=== PATIENT | male | born 1955 | race Caucasian/White ===

== ENCOUNTER 2016-06-27 03:47 | Emergency (ER) | payer OTHER ==
[2016-06-27 03:56] VITALS: RESP 16; TEMP 97.9
[2016-06-27] MEDS ORDERED: HYDROmorphONE/DILAUDID 1 MG/ML SYR IVP ONE ×2 (04:15→04:50)
[2016-06-27 04:22] LABS: % IMMATURE GRANULYOCYTES 0.2 % (0.0-1.1); ABSOLUTE IMMATURE GRANULOCYTES 0.02 10^3/uL (0.00-0.10); ADD DIFF? NO; ADD MORPH? NO; ADD SCAN? NO; ATYPICAL LYMPHOCYTE FLAG 0 (0-99); FRAGMENT RBC FLAG 0 (0-99); HEMATOCRIT 46.2 % (40.0-51.0); HEMOGLOBIN 16.5 g/dL (13.7-17.5); LEFT SHIFT FLG 0 (0-99); LIPEMIA HEMOLYSIS FLAG 90 (0-99); MEAN CELL HEMOGLOBIN 34.2 pg (27.9-34.1); MEAN CELL HEMOGLOBIN CONCENTR. 35.7 g/dL (32.4-36.7); MEAN CELL VOLUME 95.9 fL (81.5-99.8); MEAN PLATELET VOLUME 9.3 fL (8.7-11.7); PLATELET CLUMPS FLAG 0 (0-99); PLATELET COUNT 171 10^3/uL (150-400); RED BLOOD CELL COUNT 4.82 10^6/uL (4.40-6.38); RED CELL DISTRIBUTION WIDTH 11.9 % (11.5-15.2)
--- NOTE | 2016-06-27 04:34 | EDPHY ---
H & P Stated Complaint: abd pain Time Seen by Provider: 06/27/16 04:08 HPI/ROS: HPI The patient presents with left-sided lateral abdominal pain which has been present since 8:00 p.m. tonight. It began while he was watching TV and the pain started slowly and has gotten progressively worse. It is an achy in severe pain, without radiation. He has no prior history of similar. He does have frequent diffuse abdominal pain which he refers to as gas pain. He is status post cholecystectomy. He has been evaluated with endoscopy within the last few years with normal results. He just saw his doctor at [facility] yesterday who recommended MiraLax for this gas pain. He has taken several doses and has had 2 loose bowel movements since. He does not have any nausea or vomiting. The pain is unchanged with changes in position. REVIEW OF SYSTEMS Constitutional: No fever, no chills. Eyes: No discharge. ENT: No sore throat. Cardiovascular: No chest pain, no palpitations. Respiratory: No cough, no shortness of breath. Gastrointestinal: + abdominal pain, no vomiting. Genitourinary: No hematuria. Musculoskeletal: No back pain. Skin: No rashes. Neurological: No headache. PMHx: Status post cholecystectomy PHYSICAL General Appearance: Alert, no distress Eyes: Pupils equal and round no pallor or injection ENT, Mouth: Mucous membranes moist Respiratory: There are no retractions, lungs are clear to auscultation Cardiovascular: Regular rate and rhythm Gastrointestinal: Abdomen is soft with mild tenderness lateral to the umbilicus no masses, bowel sounds normal Neurological: A&O, moves all extremities Skin: Warm and dry, no rashes Musculoskeletal: Neck is supple non tender Extremities: symmetrical, full range of motion Psychiatric: Patient is oriented X 3, there is no agitation Source: Patient Exam Limitations: No limitations - Personal History Current Tetanus/Diphtheria Vaccine: Yes Current Tetanus Diphtheria and Acellular Pertussis (TDAP): Yes - Medical/Surgical History Hx Asthma: No Hx Chronic Respiratory Disease: No Hx Diabetes: Yes Hx Cardiac Disease: Yes Hx Renal Disease: No Hx Cirrhosis: No Hx Alcoholism: No Hx HIV/AIDS: No Hx Splenectomy or Spleen Trauma: No Other PMH: cholecystecomy, hyperlipidemia, CABG 2012, tonsilectomy, - Social History Smoking Status: Former smoker Constitutional: Initial Vital Signs Temperature (C) 36.6 C 06/27/16 03:52 Heart Rate 65 06/27/16 03:52 Respiratory Rate 16 06/27/16 03:52 Blood Pressure 146/87 H 06/27/16 03:52 O2 Sat (%) 97 06/27/16 03:52 O2 Delivery Mode Room Air O2 (L/minute) 2 Allergies/Adverse Reactions: No Known Allergies Allergy (Verified 06/27/16 03:50) Home Medications: Medication Instructions Recorded Metformin HCl [Metformin HCl ER] 500 mg PO 07/25/15 Atorvastatin Calcium 06/27/16 Genvoya Tablet 06/27/16 Jardiance 06/27/16 Lisinopril 06/27/16 Medical Decision Making - Diagnostics Imaging: CT scan of abdomen pelvis, discussed with Dr. Field of Radiology, formal read is pending: No evidence of nephrolithiasis, obstructive uropathy, or left sided inflammation. Moderate constipation; could the patient have some intermittent colonic spasm as etiology? No free fluid, mesenteric inflammation, or obstruction. Hepatomegaly with steatosis. RCA, PDCA and Left Cx CAD calc with median sternotomy wires (CABG). RML calcified granuloma; Lingular scar, n/c 11/09/14. Status post CCY. Normal appx. Prostatamegaly. Bilateral fat containing inguinal hernias. ED Course/Re-evaluation: 4:20 a.m.- Initial patient encounter. The patient has received a dose of pain medication. Basic labs have been ordered. 5:37 a.m.- Patient's CT scan shows no acute findings except for constipation. I have discussed this with him and encouraged him to continue the MiraLax. He is in agreement with this plan and will be discharged. Differential Diagnosis: This is a 61-year-old man who has frequent gas pains who presents with left- sided lateral abdominal pain for the last several hours. He has no associated features with this. Differential diagnosis includes nephrolithiasis, colitis, diverticulitis, constipation. - Data Points Laboratory Results: Laboratory Results 06/27/16 04:10 06/27/16 04:10 06/27/16 04:10 WBC 8.79 10^3/uL (3.80-9.50) RBC 4.82 10^6/uL (4.40-6.38) Hgb 16.5 g/dL (13.7-17.5) Hct 46.2 % (40.0-51.0) MCV 95.9 fL (81.5-99.8) MCH 34.2 H pg (27.9-34.1) MCHC 35.7 g/dL (32.4-36.7) RDW 11.9 % (11.5-15.2) Plt Count 171 10^3/uL (150-400) MPV 9.3 fL (8.7-11.7) Neut % (Auto) 53.3 % (39.3-74.2) Lymph % (Auto) 37.3 % (15.0-45.0) Wayne % (Auto) 8.0 % (4.5-13.0) Eos % (Auto) 0.9 % (0.6-7.6) Baso % (Auto) 0.3 % (0.3-1.7) Nucleat RBC Rel Count 0.0 % (0.0-0.2) Absolute Neuts (auto) 4.68 10^3/uL (1.70-6.50) Absolute Lymphs (auto) 3.28 H 10^3/uL (1.00-3.00) Absolute Monos (auto) 0.70 10^3/uL (0.30-0.80) Absolute Eos (auto) 0.08 10^3/uL (0.03-0.40) Absolute Basos (auto) 0.03 10^3/uL (0.02-0.10) Absolute Nucleated RBC 0.00 10^3/uL (0-0.01) Immature Gran % 0.2 % (0.0-1.1) Immature Gran # 0.02 10^3/uL (0.00-0.10) Sodium 140 mEq/L (134-144) Potassium 4.4 mEq/L (3.5-5.2) Chloride 105 mEq/L (97-110) Carbon Dioxide 22 mEq/l (22-31) Anion Gap 13 mEq/L (8-16) BUN 17 mg/dL (7-23) Creatinine 0.9 mg/dL (0.7-1.3) Estimated GFR > 60 Glucose 156 H mg/dL (70-100) Calcium 9.2 mg/dL (8.5-10.4) Total Bilirubin 0.6 mg/dL (0.1-1.4) Conjugated Bilirubin 0.2 mg/dL (0.0-0.5) Unconjugated Bilirubin 0.4 mg/dL (0.0-1.1) AST 34 IU/L (17-59) ALT 59 IU/L (21-72) Alkaline Phosphatase 95 IU/L (38-126) Total Protein 7.2 g/dL (6.3-8.2) Albumin 4.2 g/dL (3.5-5.0) Lipase 235.0 IU/L (23-300) Medications Given: Discontinued Medications Hydromorphone HCl (Dilaudid) 0.5 mg IVP EDNOW ONE Stop: 06/27/16 04:16 Last Admin: 06/27/16 04:20 Dose: 0.5 mg Hydromorphone HCl (Dilaudid) 0.5 mg IVP EDNOW ONE Stop: 06/27/16 04:51 Last Admin: 06/27/16 04:55 Dose: 0.5 mg Departure - Departure Disposition: Home, Routine, Self-Care Clinical Impression: Left sided abdominal pain, Constipation Condition: Good Instructions: Constipation (ED), High Fiber Diet (ED) Additional Instructions: Please make sure to drink plenty of fluids and eat high diet high in fiber. Please continue the MiraLax. You should follow up with your doctor at [facility] if the pain continues. Referrals: IN STATE,. [Primary Care Provider] - As per Instructions
[2016-06-27 04:45] LABS: ALANINE AMINOTRANSFERASE 59 IU/L (21-72); ALBUMIN 4.2 g/dL (3.5-5.0); ALKALINE PHOSPHATASE 95 IU/L (38-126); ANION GAP 13 mEq/L (8-16); ASPARTATE AMINOTRANSFERASE 34 IU/L (17-59); BILIRUBIN,TOTAL 0.6 mg/dL (0.1-1.4); BILIRUBIN-CONJUGATED 0.2 mg/dL (0.0-0.5); BILIRUBIN-UNCONJUGATED 0.4 mg/dL (0.0-1.1); CALCIUM 9.2 mg/dL (8.5-10.4); CARBON DIOXIDE 22 mEq/l (22-31); CHLORIDE 105 mEq/L (97-110); CREATININE 0.9 mg/dL (0.7-1.3); GLOMERULAR FILTRATION RATE > 60; GLUCOSE 156 mg/dL (70-100); POTASSIUM 4.4 mEq/L (3.5-5.2); SODIUM 140 mEq/L (134-144); TOTAL PROTEIN 7.2 g/dL (6.3-8.2)
[2016-06-27] MEDS ORDERED: IOPAMIDOL (ISOVUE-300) 100 ML BTL IV ONE (04:52)
[2016-06-27 05:53] VITALS: BP 115/73; PULSE 68; O2SAT 94
--- NOTE | 2016-06-27 07:11 | CT ---
Contrast-Enhanced CT Scan of the Abdomen and Pelvis Clinical History: 61-year-old male who presents to the ED complaining of left- sided lateral abdominal pain, query kidney stone versus colon process. The patient's primary home care manager rn recently suggested Miralax for constipation. The patient has a normal white blood cell count of 8.79 K, and his surgical history is notable for a prior cholecystectomy. Technique: Neither oral nor retrograde contrast was administered. The patient received 90 mL of IV Isovue-300 without complication, and a multidetector helical CT scan was obtained from the lung bases inferiorly through the proximal femora, with images reformatted at 5.00 and 1.50 mm increments, and reviewed at a variety of window and level settings. Parasagittal and paracoronal reconstructed images are reviewed on the workstation. DFOV: 39.2 cm. A dose reduction protocol was used. Comparison Study: CT scan of the abdomen and pelvis, dated November 09, 2014. Findings: Contrast Enhanced CT Scan of the Abdomen: There is some atherosclerotic calcification associated with the RCA, PDCA, and the left circumflex coronary arteries and median sternotomy wires are seen with prior CABG. There is no pericardial or pleural effusion. There is some stable scarring in the inferior lingula. Minimal dependent change is seen posteriorly. There is a calcified granuloma in the inferomedial right middle lobe. The liver is enlarged, measuring 19.1 cm in cephalocaudal diameter, and there is mild global diminished attenuation, consistent with fatty infiltration ( steatosis). The gallbladder is surgically absent. There is no intrahepatic or extrahepatic bile duct dilatation. The pancreatic contour is normal. A tiny calcification in the pancreatic body is noted. The spleen is normal in size. The adrenal glands and kidneys appear normal, and there is no nephrolithiasis, focal renal mass, perinephric fluid, or hydronephrosis. There is moderate constipation. There is no evidence of colonic diverticulitis. Could the patient have some intermittent colonic spasm as an etiology for his discomfort? There is no small bowel obstruction. There is no ascites or free air. The abdominal aorta and IVC are normal in caliber. There is some mild atherosclerotic calcification of the abdominal aorta. The osseous structures are age- appropriate. There is facet degenerative arthropathy in the [id number] lumbar spine. There is some very mild circumferential disk bulging at L4-L5 and L5-S1. There is a normal appearance of the appendix (seen on axial series 4, images 148 -157). Contrast Enhanced CT Scan of the Pelvis: Moderate constipation is seen. There is no free fluid or adenopathy. The prostate gland is enlarged, measuring 6.0 x 4.1 x 4.3 cm, and it indents the urinary bladder base. The seminal vesicles are unremarkable. The urinary bladder is moderately distended. Fat-containing bilateral inguinal hernias are seen. There are degenerative features of the SI joints. Impression: 1. There is no evidence of nephrolithiasis, obstructive uropathy, or perinephric inflammation. 2. Moderate constipation, with no evidence of colonic obstruction or active diverticulitis. Could the patient be having some intermittent colonic spasm as an etiology for his left sided pain? 3. Status post prior median sternotomy, CABG, and evidence of right and left- sided coronary artery calcifications. 4. Right middle lobe calcified granuloma. 5. Lingular scarring, unchanged from November 09, 2014. 6. Hepatomegaly with steatosis. 7. Status post cholecystectomy. 8. Normal appendix. 9. Prostatomegaly. 10. Bilateral fat-containing inguinal hernias. Preliminary results were called to Dr. Lashae Crystal at 5:30 a.m. on June 27, 2016. My final interpretation is concordant with my initial impression. POS99 MTDD
== END 2016-06-27 05:52 | disposition home or self-care (01) ==
DX: K59.00 Constipation, unspecified (principal); E11.9 Type 2 diabetes mellitus without complications; Z87.891 Personal history of nicotine dependence; Z95.1 Presence of aortocoronary bypass graft; Z90.49 Acquired absence of other specified parts of digestive tract
CPT/HCPCS: 96374; J1170; Q9967

== ENCOUNTER 2018-05-29 07:10 | Inpatient (IN) | payer MEDICAID, OTHER ==
[2018-05-29] MEDS ORDERED: NS 1,000 ML IV ONE ×2 (07:19→12:19)
--- NOTE | 2018-05-29 07:23 | EDPHY ---
H & P Stated Complaint: 6:45 this am L arm tingling L facial droop now improving Time Seen by Provider: 05/29/18 07:19 HPI/ROS: CHIEF COMPLAINT: Left facial droop and hand weakness HISTORY OF PRESENT ILLNESS: The patient is a 63-year-old man with a history of HIV, diabetes as well as a CABG in 2011 who reports that at 6:45 a.m. This morning he noticed he had trouble gripping his coffee mug with his left hand. He is left-handed. His partner than told him he also had left-sided facial droop. He confirmed this in the mirror. He did not have slurred speech or trouble speaking. He did not have any symptoms in his leg. He states that after a few minutes the weakness in his hand began to improve and so he drove himself here to the emergency department. No dizziness. No chest pain or shortness of breath. No recent fevers or infections. No trauma. Severity: Moderate Modifying factors: resolving spontaneously REVIEW OF SYSTEMS: Constitutional: denies: chills, fever, recent illness, recent injury EENTM: denies: blurred vision, double vision, nose congestion Respiratory: denies: cough, shortness of breath Cardiac: denies: chest pain, irregular heart rate, lightheadedness, palpitations Gastrointestinal/Abdominal: denies: abdominal pain, diarrhea, nausea, vomiting, blood streaked stools Genitourinary: denies: dysuria, frequency, hematuria, pain Musculoskeletal: denies: joint pain, muscle pain Skin: denies: lesions, rash, jaundice, bruising Neurological: See HPI denies: headache, dizziness Hematologic/Lymphatic: denies: blood clots, easy bleeding, easy bruising Immunologic/allergic: denies: HIV/AIDS, transplant 10 systems reviewed and negative except as noted EXAM: GENERAL: Well-appearing, well-nourished and in no acute distress. HEAD: Atraumatic, normocephalic. EYES: Pupils equal round and reactive to light, extraocular movements intact, sclera anicteric, conjunctiva are normal. ENT: TMs normal, nares patent, oropharynx clear without exudates. Moist mucous membranes. NECK: Normal range of motion, supple without lymphadenopathy or JVD. LUNGS: Breath sounds clear to auscultation bilaterally and equal. No wheezes rales or rhonchi. HEART: Regular rate and rhythm without murmurs, rubs or gallops. ABDOMEN: Soft, nontender, normoactive bowel sounds. No guarding, no rebound. No masses appreciated. BACK: No CVA tenderness, no spinal tenderness, step-offs or deformities EXTREMITIES: Normal range of motion, no pitting or edema. No clubbing or cyanosis. NEUROLOGICAL: Cranial nerves II through XII grossly intact. Normal speech, normal gait without difficulty. 5/5 strength, normal movement in all extremities, normal sensation, normal cerebellar testing. No pronator drift. 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 Normal speech. No aphasia or dysarthria. NIH stroke score 0. PSYCH: Normal mood, normal affect. SKIN: Warm, dry, normal turgor, no visible rashes or lesions. Source: Patient Exam Limitations: No limitations - Medical/Surgical History Hx Asthma: No Hx Chronic Respiratory Disease: No Hx Diabetes: Yes Hx Cardiac Disease: Yes Hx Renal Disease: No Hx Cirrhosis: No Hx Alcoholism: No Hx HIV/AIDS: No Hx Splenectomy or Spleen Trauma: No Other PMH: cholecystecomy, hyperlipidemia, CABG 2011, tonsilectomy, HIV - Social History Smoking Status: Former smoker Alcohol Use: Sober Constitutional: Initial Vital Signs Temperature (C) 36.5 C 05/29/18 07:17 Heart Rate 76 05/29/18 07:17 Respiratory Rate 18 05/29/18 07:17 Blood Pressure 151/85 H 05/29/18 07:17 O2 Sat (%) 98 05/29/18 07:17 O2 Delivery Mode Room Air Allergies/Adverse Reactions: No Known Allergies Allergy (Verified 06/27/16 03:50) Home Medications: Medication Instructions Recorded Aspirin EC [Aspirin EC 81 mg (*)] 81 mg PO HS 05/29/18 Elviteg/Cob/Emtri/Tenof Alafen 1 each PO HS 05/29/18 [Genvoya Tablet] Lisinopril [Zestril 2.5 mg (*)] 2.5 mg PO HS 05/29/18 Alexander-3 Fatty Acids [Fish Oil 1000 1,000 mg PO HS 05/29/18 mg (*)] metFORMIN HCL [Glucophage 500 mg 500 mg PO BIDMEAL 05/29/18 (*)] Medical Decision Making - Diagnostics EKG Interpretation: An EKG obtained and was read and documented in trace view. Please see trace view for full reading and report. Sinus rhythm, no acute ischemic changes Imaging Results: Imaging Impressions Head CT 05/29/18 07:20 Impression: Normal brain. Atherosclerotic disease.. Results called to Dr. Barber Peterson at 8:04 AM. Final results are concordant with the initial interpretation. General information for patients regarding this examination can be found at [employer]. If you have questions or comments about this report, please contact me at [phone] (hospital) or [phone] (cell). Head CTA 05/29/18 07:20 Impression: Localized nonflow limiting spasm versus nonflow limiting noncalcified plaque of the basilar artery and left posterior cerebral artery. 2. CT Angiography of the Neck (With Contrast) Clinical Indications: Left-sided weakness and left facial droop Technique: During IV administration of 85 mL of Isovue-370 intravenously, helical multidetector data acquisition was obtained from the upper thorax cephalad through the skull base. The thinly collimated data were manipulated in multiple projections on the 3D computer workstation by the radiologist. Dose reduction techniques were utilized. Findings: Carotid bifurcations are widely patent. There is nonflow limiting calcified and noncalcified plaque in the right carotid bifurcation and proximal internal carotid artery. There is a small amount of noncalcified plaque in the left carotid bifurcation. Both vertebral arteries are open. No evidence of occlusion, hemodynamically significant stenosis, or ulceration. Patient has had prior coronary artery bypass grafting. Impression: No flow-limiting stenosis identified. Results discussed with Dr. Madsen at 8:24 AM. Final results are concordant with the initial interpretation. Note: All stenoses are calculated using NASCET Criteria. General information for patients regarding this examination can be found at [employer]. If you have questions or comments about this report, please contact me at [phone](hospital) or [phone] (cell). Neck CTA 05/29/18 07:20 Impression: Localized nonflow limiting spasm versus nonflow limiting noncalcified plaque of the basilar artery and left posterior cerebral artery. 2. CT Angiography of the Neck (With Contrast) Clinical Indications: Left-sided weakness and left facial droop Technique: During IV administration of 85 mL of Isovue-370 intravenously, helical multidetector data acquisition was obtained from the upper thorax cephalad through the skull base. The thinly collimated data were manipulated in multiple projections on the 3D computer workstation by the radiologist. Dose reduction techniques were utilized. Findings: Carotid bifurcations are widely patent. There is nonflow limiting calcified and noncalcified plaque in the right carotid bifurcation and proximal internal carotid artery. There is a small amount of noncalcified plaque in the left carotid bifurcation. Both vertebral arteries are open. No evidence of occlusion, hemodynamically significant stenosis, or ulceration. Patient has had prior coronary artery bypass grafting. Impression: No flow-limiting stenosis identified. Results discussed with Dr. Madsen at 8:24 AM. Final results are concordant with the initial interpretation. Note: All stenoses are calculated using NASCET Criteria. General information for patients regarding this examination can be found at [email or web address]. If you have questions or comments about this report, please contact me at (hospital) or [phone] (cell). Imaging: Discussed imaging studies w/ director career Radiologist ED Course/Re-evaluation: 8:30 a.m. the patient continues to do well. He does still complain of some clumsiness with his left hand. His NIH stroke score remains 0. He is not a tPA candidate because of has improving symptoms and no score. He does have some slight abnormality seen on CT angiogram. He is currently asymptomatic. Have paged Neurology. Spoke with Dr. Sandra who will admit to med surg. 8:40 p.m. the patient tells me now that he is [facility] patient but would prefer to stay here. I will contact the transfer center. 8:40 p.m. I spoke with [facility] transfer center. They recommend the patient stay here. 8:45 a.m. I spoke with Dr. Eric Ruiz who will consult. He agrees with the plan thus far. Differential Diagnosis: Partial list of the Differential diagnosis considered include but were not limited to; CVA, TIA, and although unlikely based on the history and physical exam, I also considered seizure, infection. - Data Points Laboratory Results: Laboratory Results 05/29/18 07:26 05/29/18 07:26 05/29/18 05/29/18 05/29/18 07:28 07:26 07:26 WBC RBC Hgb POC Hgb 17.3 gm/dL gm/dL (13.7-17.5) Hct POC Hct 51 % % (40-51) MCV MCH MCHC RDW Plt Count MPV Neut % (Auto) Lymph % (Auto) Hartley % (Auto) Eos % (Auto) Baso % (Auto) Nucleat RBC Rel Count Absolute Neuts (auto) Absolute Lymphs (auto) Absolute Monos (auto) Absolute Eos (auto) Absolute Basos (auto) Absolute Nucleated RBC Immature Gran % Immature Gran # PT 13.3 SEC SEC (12.0-15.0) INR 0.99 (0.83-1.16) APTT 26.7 SEC SEC (23.0-38.0) POC Sodium 140 mEq/L mEq/L (135-145) Sodium 139 mEq/L mEq/L (135-145) POC Potassium 4.7 mEq/L mEq/L (3.3-5.0) Potassium 5.0 mEq/L mEq/L (3.5-5.2) POC Chloride 101 mEq/L mEq/L (97-110) Chloride 103 mEq/L mEq/L (97-110) Carbon Dioxide 25 mEq/l mEq/l (22-31) Anion Gap 11 mEq/L mEq/L (6-14) POC BUN 10 mg/dL mg/dL (7-23) BUN 12 mg/dL mg/dL (7-23) Creatinine 1.1 mg/dL mg/dL (0.7-1.3) POC Creatinine 1.2 mg/dL mg/dL (0.7-1.3) Estimated GFR > 60 Glucose 197 mg/dL H mg/dL (70-100) POC Glucose 196 mg/dL H mg/dL (70-100) Calcium 10.2 mg/dL mg/dL (8.5-10.4) POC Troponin I 05/29/18 05/29/18 07:26 07:24 WBC 7.71 10^3/uL 10^3/uL (3.80-9.50) RBC 4.91 10^6/uL 10^6/uL (4.40-6.38) Hgb 16.7 g/dL g/dL (13.7-17.5) POC Hgb Hct 49.1 % % (40.0-51.0) POC Hct MCV 100.0 fL H fL (81.5-99.8) MCH 34.0 pg pg (27.9-34.1) MCHC 34.0 g/dL g/dL (32.4-36.7) RDW 12.1 % % (11.5-15.2) Plt Count 190 10^3/uL 10^3/uL (150-400) MPV 9.1 fL fL (8.7-11.7) Neut % (Auto) 38.7 % L % (39.3-74.2) Lymph % (Auto) 51.5 % H % (15.0-45.0) Hartley % (Auto) 7.3 % % (4.5-13.0) Eos % (Auto) 1.6 % % (0.6-7.6) Baso % (Auto) 0.6 % % (0.3-1.7) Nucleat RBC Rel Count 0.0 % % (0.0-0.2) Absolute Neuts (auto) 2.99 10^3/uL 10^3/uL (1.70-6.50) Absolute Lymphs (auto) 3.97 10^3/uL H 10^3/uL (1.00-3.00) Absolute Monos (auto) 0.56 10^3/uL 10^3/uL (0.30-0.80) Absolute Eos (auto) 0.12 10^3/uL 10^3/uL (0.03-0.40) Absolute Basos (auto) 0.05 10^3/uL 10^3/uL (0.02-0.10) Absolute Nucleated RBC 0.00 10^3/uL 10^3/uL (0-0.01) Immature Gran % 0.3 % % (0.0-1.1) Immature Gran # 0.02 10^3/uL 10^3/uL (0.00-0.10) PT INR APTT POC Sodium Sodium POC Potassium Potassium POC Chloride Chloride Carbon Dioxide Anion Gap POC BUN BUN Creatinine POC Creatinine Estimated GFR Glucose POC Glucose Calcium POC Troponin I 0.01 ng/mL ng/mL (0.00-0.08) Medications Given: Clopidogrel Bisulfate (Plavix) 75 mg PO DAILY VALENCIA Stop: 11/25/18 10:29 Last Admin: 05/29/18 11:43 Dose: 75 mg Discontinued Medications Sodium Chloride (Ns) 1,000 mls @ 500 mls/hr IV EDNOW ONE PRN Reason: Protocol Stop: 05/29/18 09:18 Last Admin: 05/29/18 07:41 Dose: 1,000 mls Point of Care Test Results: Chemistry 05/29/18 05/29/18 07:28 07:24 POC Sodium 140 mEq/L mEq/L (135-145) POC Potassium 4.7 mEq/L mEq/L (3.3-5.0) POC Chloride 101 mEq/L mEq/L (97-110) POC BUN 10 mg/dL mg/dL (7-23) POC Creatinine 1.2 mg/dL mg/dL (0.7-1.3) POC Glucose 196 mg/dL H mg/dL (70-100) POC Troponin I 0.01 ng/mL ng/mL (0.00-0.08) ISTAT H&H 05/29/18 07:28 POC Hgb 17.3 gm/dL gm/dL (13.7-17.5) POC Hct 51 % % (40-51) Departure - Departure Disposition: [facility]
[2018-05-29] MEDS ORDERED: IOPAMIDOL (ISOVUE 370) 100 ML BTL IV ONE (07:26)
[2018-05-29 07:32] LABS: PLATELET COUNT 190 10^3/uL (150-400)
[2018-05-29 07:45] LABS: INR 0.99 (0.83-1.16); PROTIME(PATIENT) 13.3 SEC (12.0-15.0)
--- NOTE | 2018-05-29 08:03 | CPEKG ---
Test Reason : OPEN Blood Pressure : / mmHG Vent. Rate : 063 BPM Atrial Rate : 063 BPM P-R Int : 128 ms QRS Dur : 095 ms QT Int : 401 ms P-R-T Axes : 053 -29 014 degrees QTc Int : 411 ms Sinus rhythm Borderline left axis deviation Confirmed by Barber Madsen ([id number]) on 05/29/2018 8:03:38 AM Referred By: Confirmed By:Barber Madsen
[2018-05-29] MEDS: CLOPIDOGREL BISULFATE 75 MG TAB PO SCH (11:43)
--- NOTE | 2018-05-29 11:55 | GCON ---
NEUROLOGIC CONSULTATION REFERRING PHYSICIAN: Lenny Villafuerte MD HISTORY: The patient is a 63-year-old HIV positive man who is on suppressive antiviral therapy and h as been stable from an HIV standpoint. This morning at around 6:30, he was reaching for a cup of cof fee and noticed there was definitely a problem using the left hand. Over the next several minutes, jacky chiu became aware that there was some decreased control of the left arm and abnormal sensation, which al so started to affect his face. He even felt as if he was having a little bit of trouble swallowing, so he stopped trying to swallow for fear he might choke. He does not feel his language was different . He denies any visual complaints. He has never had similar symptoms before. He has not had any re cent illness and no head trauma. Nothing has been unusual recently. He is stable on all of his medi cations. Since coming to the hospital, he feels he is a little bit better. When this failed to get better at home, he drove himself here and never felt any symptoms in the leg. He has had a head CT, as well as CT angiogram of the head and neck, which do not reveal any severe stenoses. There is some mild spasm or plaquing in the basilar and left posterior cerebral artery territory, but nothing else more specific and nothing in the right anterior circulation to explain any of these symptoms. He al ready takes 1 aspirin per day. PAST MEDICAL HISTORY: His past medical history is notable for being HIV positive, followed in [place] . He has a history of hyperlipidemia and coronary artery disease with CABG, 2012. Tonsillectomy and cholecystectomy. HABITS: He is a former smoker. No alcohol abuse. MEDICATIONS: At home, aspirin 81 mg daily, metformin, Genvoya, lisinopril, and omega-3. ALLERGIES: No drug allergies. REVIEW OF SYSTEMS: The patient denies chest pain, palpitations, or shortness of breath. PHYSICAL EXAM: VITAL SIGNS: Blood pressure is 123/59, pulse of 68, respirations 16, temperature 36. 5. GENERAL: He is well developed, in no acute distress. EYES: Clear. NECK: Supple, with no brui ts or masses. CARDIAC: Regular rate and rhythm. NEUROLOGIC: He is awake, alert and attentive, and fully oriented to person, place, and time. Good recent and remote memory, as well as normal concent ration and attention and general fund of knowledge. Pupils 2 mm and reactive. Visual soto are ful l. Extraocular movements are intact. Normal facial sensation for temperature and light touch. Ther e is not definite weakness in the left face, although when he smiles, it looks as if he has mild weak ness of pulling back on the left side of the face compared to the right. Palate elevates symmetrical ly. Tongue protrudes midline. Motor exam: Normal muscle bulk and tone and a slight degree of drift in the left upper extremity and some mild weakness with manual muscle testing, 4/5, and his cradle slide maker is weaker on the left than the right. He also subjectively can tell that it is harder for him to write, and his cradle slide maker feels off. Left lower extremity has no weakness. Sensation is preserved in the extrem ities for temperature and light touch. No ataxia. Reflexes are 1+ and symmetric. IMPRESSION: The patient's NIH stroke scale would be 2 based on the subtle facial weakness and left a rm weakness. The patient has clinical evidence of a very small, lacunar type infarction perhaps in t he right basal ganglia region. He does have risk factors of hyperlipidemia and coronary artery disea se and a former smoker. I would recommend we add Plavix to the aspirin for now with dual therapy rec ommended long-term unless we find some indication for anticoagulation. Echocardiogram has been perfo rmed, and results are pending. MRI will be obtained this morning as well for further clarification o f any definitive stroke findings versus TIA. Total unit time of 55 minutes. I discussed the case with Dr. Lenny Villafuerte, who will be admitting treasure hurtado as well. Copy requested to: Liam /[id number]/MODL
--- NOTE | 2018-05-29 12:11 | ECHO ---
[email or web address] [address] [address] Main: [phone] Fax: Transthoracic Echocardiogram Name: ISREAL TOPETE MR#: [id number] Study Date: 05/29/2018 Study Time: 09:24 AM Date of : 1955 Age: 63 year(s) Height: 167.6 cm (66 in.) Weight: 83.92 kg (185 lb.) BSA: 1.93 m2 Gender: Male Examination: Echo with Agitated Saline Indication: Ischemic Stroke Image Quality: Adequate Contrast: Requested by: Lenny Villafuerte BP: 120 mmHg/79 mmHg Heart Rate: Rhythm: Indication: Ischemic Stroke Procedure Staff Wafer Polisher: Mariely Watts RDCS Reading Physician: Eh Wynn MD Requesting Provider: Conclusions: Normal size left ventricle. Mild concentric LV hypertrophy. Normal global systolic LV function. EF is 61 %. No regional wall motion abnormality. Normal diastolic LV function. The left atrium is normal in size. An agitated saline study was performed and was negative for intracardiac shunting. The right atrium is normal in size. The aortic valve is tri-leaflet. There is a echodensity noted on the Left Coronary Cusp. 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 Recommend ANA. . The pulmonary artery pressure is normal. Right ventricular systolic pressure measures 28mmHg. No pericardial effusion. Recommend ANA for further evaluation of the Aortic Valve. Measurements: Chambers Valvular Assessment AV/MV Valvular Assessment TV/PV Normal Normal Normal Name Value Range Name Value Range Name Value Range Ao Parisa (2D): 3.1 cm (1.4 cm-2.6 AV Vmax: 1.34 m/s (1 m/s-1.7 TR Vmax: 2.40 mm/s ( - ) cm) m/s) TR PGmax: 23 mmHg ( - ) IVSd (2D): 1.2 cm (0.6 cm-1.1 AV maxP mmHg ( - ) syst. PAP: 28 mmHg ( - ) cm) AV meanP mmHg ( - ) PV Vmax: 1.13 m/s (0.6 m/s-0.9 LVDd (2D): 4.6 cm (4.2 cm-5.9 LVOT Vmax: 1.05 m/s (0.7 m/s-1.1 m/s) cm) m/s) PV PGmax: 5 mmHg ( - ) LVDs (2D): 3.0 cm (2.1 cm-4 EDUARDO (Vmax): 2.5 cm2 ( - ) cm) EDUARDO (VTI): 2.8 cm ( - ) MV E Vmax: 0.91 m/s ( - ) Patient: ISREAL TOPETE Study Date: 05/29/2018 Page 1 of 3 09:24 AM LVPWd (2D): 1.2 cm (0.6 cm-1 MV A Vmax: 0.61 m/s ( - ) cm) MV E/A: 1.49 ( - ) LVOTd 2.0 cm 2.0 cm mm MV PHT: 0.057 s ( - ) LVEF (BP): 61 % (>=55 %) MVA (PHT): 3.9 s ( - ) RVDd(2D): 3.6 cm (1.9 cm-3.8 cmmm) Continued Measurements: Chambers Valvular Assessment AV/MV Valvular Assessment TV/PV Name Value Name Value Name Value LADs: 3.9 cm MV DecTime: 155 m/s CVP (est.): 5 mmHg LADs Lon.6 cm MV E/E' Septal: 9.90 LA Area: 20.5 cm2 MV E/E' Lateral: 8.20 LA Volume: 61 ml LA Volume Index: 31.6 ml/m2 RA Area: 14.7 cm2 Additional Vessels Name Value Ao Ascendin.4 cm Inferior Vena Cava: 1.3 cm Findings: Left Ventricle: Normal size left ventricle. Mild concentric LV hypertrophy. Normal global systolic LV function. EF is 61 %. No regional wall motion abnormality. Normal diastolic LV function. Right Ventricle: Normal size right ventricle. Normal RV function. Left Atrium: The left atrium is normal in size. An agitated saline study was performed and was negative for intracardiac shunting. Right Atrium: The right atrium is normal in size. Mitral Valve: The mitral valve is normal in appearance and function. No mitral stenosis is present. Mild mitral valve regurgitation is present. Aortic Valve: The aortic valve is tri-leaflet. Trivial aortic valve regurgitation. No aortic valve stenosis is present. There is a echodensity noted on the Left Coronary Cusp. 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 Recommend ANA. . Tricuspid Valve: The tricuspid valve is normal in appearance and function. Mild tricuspid regurgitation is present. The pulmonary artery pressure is normal. Right ventricular systolic pressure measures 28mmHg. Pulmonic Valve: The pulmonic valve is normal in appearance and function. Aorta: The aorta is normal. Normal size aortic root measuring 3.1 cm. Normal size ascending aorta measuring 3.4 cm. IVC: The IVC is normal sized. Pericardium: No pericardial effusion. No pleural effusion. Exam Comments: Some apical imaging foreshortened, limited apical windows. Patient: ISREAL TOPETE Study Date: 05/29/2018 Page 2 of 3 09:24 AM (No Signature Object) Patient: ISREAL TOPETE Study Date: 05/29/2018 Page 3 of 3 09:24 AM [id number]
[2018-05-29] MEDS ORDERED: LORazepam 0.5 MG TAB PO PRN (16:25)
[2018-05-29] MEDS ORDERED: ONDANSETRON DISINTEGRATING 4 MG TAB PO PRN (16:58)
[2018-05-29] MEDS ORDERED: ONDANSETRON 4 MG/2 ML VIAL IVP PRN (16:58)
[2018-05-29] MEDS ORDERED: ACETAMINOPHEN 325 MG TAB PO PRN (16:58)
--- NOTE | 2018-05-29 17:27 | GHP ---
DATE OF ADMISSION: 05/29/2018 CHIEF COMPLAINT: Left hand weakness and facial droop. HISTORY OF PRESENT ILLNESS: The patient is a pleasant 63-year-old gentleman with a past medical hist ory of coronary artery disease with a history of CABG, diabetes mellitus, and HIV, who presented to [facility] emergency room after he awoke this morning and had difficulty using his right hand. He also had difficulty when he was trying to eat breakfast and looked at his face in the mirror and appreciated a facial droop. At that point in time, he came to the [facility] emergen cy room and underwent a workup for a stroke. Dr. Ruiz was consulted and evaluated the patient i n the emergency room. His MRI did show evidence of a localized collection of small right middle cere bral artery territory ischemic cortical infarcts, likely related to a localize shower of emboli. An echocardiogram performed showed an echodensity in the left coronary cusp, and a transesophageal echoc ardiogram was recommended. This has been ordered for tomorrow. The patient states this afternoon th at his strength seems to be improving in the left upper extremity. The case was also reviewed with [facility], who recommended a mechanical soft diet at this time. PAST MEDICAL HISTORY: Coronary artery disease with a history of coronary artery bypass grafting in 2 012; diabetes mellitus, type 2; HIV positive. PAST SURGICAL HISTORY: Cholecystectomy, tonsillectomy. MEDICATIONS: Aspirin 81 mg daily, metformin 500 mg twice a day, lisinopril 2.5 mg nightly, Tenof Ala fen 1 tablet nightly. ALLERGIES: No known drug allergies. FAMILY HISTORY: Mother and Father are both . Mother from leukemia when the patient was at a young age. SOCIAL HISTORY: Patient is a former smoker many, many years ago. He is currently single. REVIEW OF SYSTEMS: CONSTITUTIONAL: No complaints of any fevers or chills. ENT: No recent upper re spiratory illnesses. CARDIOVASCULAR: No complaints of any chest pains, palpitations, or syncopal ep isodes. RESPIRATORY: No complaints of shortness of breath or productive cough. GI: No nausea or v omiting. He does state that he has chronic intestinal issues that have been ongoing for several year s. : No report of any difficulty with urination. NEUROLOGIC: No complaints of any headaches. P ositive for focal weakness of the left upper extremity and left facial droop. HEMATOLOGIC: No histo ry of any deep vein thrombosis or pulmonary embolism. PSYCHIATRIC: No history of anxiety or depress ion. ENDOCRINE: No polyuria or heat intolerance. SKIN: No new skin rashes. MUSCULOSKELETAL: No focal joint pains. PHYSICAL EXAM: VITAL SIGNS: Temperature 36.5, blood pressure 113/78, heart rate 61, respirations 16 , satting 93% on room air. GENERAL: Patient appears comfortable. He is awake, alert, conversant, i n no acute distress. HEENT: Extraocular movements appear intact. No scleral icterus. NECK: Suppl e. No bruit. CHEST: Clear on auscultation. Normal respiratory effort. HEART: Regular rate and r hythm. No murmurs. ABDOMEN: Soft, nontender, nondistended. : No Rachel catheter in place. EXTR EMITIES: No significant pitting edema. NEUROLOGIC: I suspect he has a very slight left upper lip f acial droop. 5/5 right hand grasp, 4/5 left hand grasp, 5/5 strength in both lower extremities. Oth erwise, cranial nerves appear intact. LABS: White blood cell count 7, hemoglobin 16, platelets 190. Sodium 139, potassium 4.7, chloride 1 03, bicarb 25, BUN 12, creatinine 1.1, glucose of 197. INR is 0.99. Troponin 0.01. IMAGING: CT scan of the head and CT angiography of the head and neck without any significant finding s. Other imaging as detailed in the HPI. ECG shows normal sinus rhythm. ASSESSMENT/PLAN: 1. Cerebrovascular accident: The patient was found to have a collection of small right middle cereb ral artery territory infarcts, which is concerning for potential embolic stroke. Transthoracic echoc ardiogram, as well, revealed findings in the coronary cusp. So, a transesophageal echocardiogram is being arranged for for tomorrow morning. Plavix was added to the patient's current aspirin therapy. I recommend that we check a lipid panel in the morning and continue to work with Physical Therapy, O ccupational Therapy and Speech Therapy. Continue telemetry monitoring to assess for paroxysmal atria l fibrillation. 2. Coronary artery disease/history of coronary artery bypass grafting: Continue medical management, including aspirin therapy. I do not see that he is on statin therapy at this time. 3. Diabetes mellitus, type 2: A1c with morning labs to assess control. Otherwise, continue current medical therapy. 4. Human immunodeficiency virus positive: Continue current medication. 5. Deep venous thrombosis prophylaxis: Lovenox. DISPOSITION: We will admit under inpatient status at this time. /[id number]/MODL
[2018-05-29] MEDS: ATORVASTATIN CALCIUM 40 MG TAB PO SCH (17:39)
[2018-05-29] MEDS ORDERED: Elviteg/Cob/Emtri/Tenof Alafen [Genvoya Tablet] 1 EACH PO SCH (21:00)
[2018-05-29] MEDS ORDERED: LISINOPRIL 2.5 MG TAB PO SCH (21:45)
[2018-05-30 05:49] LABS: PLATELET COUNT 182 10^3/uL (150-400)
--- NOTE | 2018-05-30 08:28 | PDMN ---
Medical Necessity Medical necessity: Pt meets inpt criteria per MD order and [facility] [place], Stroke: Ischemic. 63 y/o admitted w/CVA, found to have sm right middle cerebral artery territory infarcts, concerning for embolic stroke, findings also in coronary cusp per ECHO, follow-up ANA in AM, pt w/risk factors of hyperlipidemia and CAD w/CABG, other PMH includes DM and HIV.
[2018-05-30] MEDS ORDERED: ASPIRIN 325 MG TAB PO SCH (09:00)
[2018-05-30] MEDS ORDERED: ASPIRIN 81 MG CHEWABLE TAB PO SCH (09:00)
[2018-05-30] MEDS ORDERED: NS 1,000 ML IV ONE (09:00)
[2018-05-30] MEDS ORDERED: ENOXAPARIN 40 MG/0.4 ML SYR SC SCH (09:00)
--- NOTE | 2018-05-30 09:54 | PDANEPAE ---
ANE Past Medical History - Cardiovascular History Hx Hypertension: Yes Hx Arrhythmias: No Hx Chest Pain: Yes Hx Coronary Artery / Peripheral Vascular Disease: Yes Hx CHF / Valvular Disease: No Hx Palpitations: No Cardiovascular History Comment: HYPERLIPEDEMIA. CP- CABG 2011 - Pulmonary History Hx COPD: No Hx Asthma/Reactive Airway Disease: No Hx Recent Upper Respiratory Infection: No Hx Oxygen in Use at Home: No Hx Sleep Apnea: Yes - Neurologic History Hx Cerebrovascular Accident: No Hx Seizures: No Hx Dementia: No - Endocrine History Hx Diabetes: Yes Hypothyroid: No Hyperthyroid: No Obesity: no Endocrine History Comment: DMII- METFORMIN - Renal History Hx Renal Disorders: No Renal History Comment: GALLSTONES - Liver History Hx Hepatic Disorders: No - Neurological & Psychiatric Hx Hx Neurological and Psychiatric Disorders: No - Cancer History Hx Cancer: No - Congenital Disorder History Hx Congenital Disorders: No - GI History GERD: no Hx Gastrointestinal Disorders: No Gastrointestinal History Comment: INDIGESTION. GAS - Other Health History Other Health History: NEG - Chronic Pain History Chronic Pain: Yes (GASTRIC) - Surgical History Prior Surgeries: CABG 2011. TONSILLECTOMY 2007 ANE Review of Systems Review of Systems: - Exercise capacity Exercise capacity: limited by disability METS (RN): 4 METS ANE Patient History - Allergies Allergies/Adverse Reactions: No Known Allergies Allergy (Verified 06/27/16 03:50) - Home Medications Home Medications: Aspirin EC [Aspirin EC 81 mg (*)] 81 mg PO HS 05/29/18 [Last Taken 05/28/18] Elviteg/Cob/Emtri/Tenof Alafen [Genvoya Tablet] 1 each PO HS 05/29/18 [Last Taken 05/28/18] Lisinopril [Zestril 2.5 mg (*)] 2.5 mg PO HS 05/29/18 [Last Taken 05/28/18] Senath-3 Fatty Acids [Fish Oil 1000 mg (*)] 1,000 mg PO HS 05/29/18 [Last Taken 05/28/18] metFORMIN HCL [Glucophage 500 mg (*)] 500 mg PO BIDMEAL 05/29/18 [Last Taken ] - Anes Hx Anes Hx: no prior problems - Smoking Hx Smoking Status: Former smoker - Alcohol Use Alcohol Use: Sober - Family Anes Hx Family Anes Hx: neg - N/A Family Hx Anesthesia Complications: NONE ANE Labs/Vital Signs - Labs Result Diagrams: 05/30/18 04:53 05/30/18 04:53 - Vital Signs Blood Pressure: 102/74 Heart Rate: 58 Respiratory Rate: 15 O2 Sat (%): 95 Height: 170.18 cm Weight: 83.007 kg ANE Physical Exam - Airway Neck exam: FROM Mallampati Score: Class 3 Mouth exam: normal dental/mouth exam - Pulmonary Pulmonary: no respiratory distress, no rales or rhonchi, clear to auscultation - Cardiovascular Cardiovascular: regular rate and rhythym, no murmur, rub, or gallop - ASA Status ASA Status: III ANE Anesthesia Plan Total IV Anesthesia: Yes
[2018-05-30] MEDS ORDERED: PROPOFOL 200 MG/20 ML VIAL ONE ×3 (09:58→10:18)
--- NOTE | 2018-05-30 10:19 | NEUROPROG ---
Assessment: Total unit time of 25 min. The patient has experienced a right middle cerebral artery stroke of either embolic origin, which is favored, or local thrombosis but not able to say definitively at this stage and we do not have a specific embolic source identified. The anomaly on the echocardiogram will be further investigated today. If that is negative, then he can be discharged but should be set up for a 30 day monitor for occult atrial fibrillation with Cardiology and could follow up with me in the next month. If there is not clear indication for anticoagulation I would continue the dual anti-platelet therapy with Plavix and aspirin. He is already taking a statin. He also needs to have outpatient occupational therapy. He is followed by [place] currently so logistics of this will have to be worked out based on his insurance. Subjective: The patient reports that he feels about the same in terms of the weakness of the left hand overnight. He does not feel he is any worse. Objective: Vital Signs Temp Pulse Resp BP Pulse Ox 36.4 C 58 L 15 102/74 95 05/30/18 08:00 05/30/18 09:54 05/30/18 09:54 05/30/18 09:54 05/30/18 09:54 Laboratory Results 05/30/18 04:53 05/30/18 04:53 05/29/18 05/30/18 05/31/18 05:59 05:59 05:59 Intake Total 450 Balance 450 PT 13.3 SEC (12.0-15.0) 05/29/18 07:26 INR 0.99 (0.83-1.16) 05/29/18 07:26 He continues to have a very mild left lower facial weakness and mild left upper extremity weakness with an NIH stroke scale of 2. His echocardiogram did not show definitive abnormality but a question of aortic valvular anomaly with recommendation for ANA which is recommended for today. That is currently pending. His MRI did confirm a stroke in the right middle cerebral artery territory with characteristics suggesting possible embolic shower. Allergies/Adverse Reactions: No Known Allergies Allergy (Verified 06/27/16 03:50)
--- NOTE | 2018-05-30 11:05 | POSTANESTH ---
Post Anesthetic Evaluation Cardiovascular Status: Normal, Stable Respiratory Status: Normal, Stable Level of Consciousness/Mental Status: Can Participate in Eval Pain Control: Adequate, Prn Tx Ordered Nausea/Vomiting Control: Adequate, Prn Tx Ordered Complications Possibly Related to Anesthesia: None Noted
[2018-05-30] MEDS ORDERED: PHENYLEPHRINE HCL 100 MCG/ML SYR ONE (11:10)
[2018-05-30] MEDS: CLOPIDOGREL BISULFATE 75 MG TAB PO SCH (11:32)
[2018-05-30] MEDS: ATORVASTATIN CALCIUM 40 MG TAB PO SCH (11:32)
--- NOTE | 2018-05-30 12:04 | ASMTLACE ---
VANI Length of stay for Answers: 1 day current admission Comorbidities - select Answers: Coronary Artery Disease all that apply Other Notes: HIV positive # of Emergency department Answers: 1-2 visits in the last 6 months Score: 5 Date Signed: 05/30/2018 12:03 PM Electronically Signed By:Shelly Nieto RN
--- NOTE | 2018-05-30 12:08 | ASMTCMCOM ---
CM Note CM Note Notes: Chart reviewed. Patient s/p CVA with residual left sided weakness. Cleared per therapy to go home independent. Cleared by cardiology and neurology, [place] patient to follow up with monitoring through his PCP. No current needs identified Home on anti-coagulation. Plan: DC to home with planned follow up. Date Signed: 05/30/2018 12:08 PM Electronically Signed By:Shelly Nieto RN
--- NOTE | 2018-05-30 12:10 | ASMTDCNOTE ---
Case Management Discharge Discharge Order Complete? Answers: Yes Patient to Obtain Answers: Independently Medications Transportation Arranged Answers: Family/Friends Discharge Comments Notes: Patient medically cleared for discharge. He is to follow up with his [place] providers. No current needs. Date Signed: 05/30/2018 12:09 PM Electronically Signed By:Shelly Nieto RN
[2018-05-30 12:34] VITALS: BP 108/71
--- NOTE | 2018-05-30 13:29 | ECHO ---
[email or web address] [address] [address] Main: [phone] Fax: Transesophageal Echocardiography Name: ISREAL TOPETE MR#: [id number] Study Date: 05/30/2018 Study Time: 08:49 AM Date of : 1955 Age: 63 year(s) Height: ( ) Weight: ( ) BSA: Gender: Male Examination: ANA Indication: evaluate aortic valve Image Quality: Adequate Contrast: Requested by: Lenny Villafuerte Heart Rate: Rhythm: BP: / Procedure Staff Machine Molder Squeeze: Mariely Watts COLEMAN Reading Physician: Eh Wynn MD Requesting Provider: ANA Exam Details Conclusions: Normal size left ventricle. Normal global systolic LV function. Normal RV function. The left atrium is normal in size. An agitated saline study was performed and was negative for intracardiac shunting. Good color flow doppler in the left atrial appendage. The aortic valve is tri-leaflet. There is no significant aortic valve regurgitation. No aortic valve stenosis is present. The pulmonary artery pressure is normal. Mild plaque. Findings on aortic valve demonstrate small mild calcification of Left coronary cusp. No papillary fibroelastoma. Measurements: Chambers Valvular Assessment AV/MV Valvular Assessment TV/PV Normal Normal Normal Name Value Range Name Value Range Name Value Range Additional Measurements: Findings: Left Ventricle: Patient: ISREAL TOPETE Study Date: 05/30/2018 Page 1 of 2 08:49 AM Normal size left ventricle. Normal global systolic LV function. No regional wall motion abnormality. Right Ventricle: Normal size right ventricle. Normal RV function. Left Atrium: The left atrium is normal in size. An agitated saline study was performed and was negative for intracardiac shunting. Left Atrial Appendage: The left atrial appendage is unilobular. Good color flow doppler in the left atrial appendage. Normal PW-Doppler flow pattern. No thrombus in left appendage. Right Atrium: The right atrium is normal in size. Mitral Valve: The mitral valve is normal in appearance and function. Mild mitral valve regurgitation is present. No mitral stenosis is present. Aortic Valve: The aortic valve is tri-leaflet. There is no significant aortic valve regurgitation. No aortic valve stenosis is present. There is a small echodensity on the left coronary cusp, consistent with mild calcification of the valve. No evidence of papilllary fibroelastoma. . Tricuspid Valve: The tricuspid valve is normal in appearance and function. Mild tricuspid regurgitation is present. The pulmonary artery pressure is normal. Pulmonic Valve: The pulmonic valve is normal in appearance and function. Aorta: Mild plaque. Pericardium: No pericardial effusion. l1n (No Signature Object) Patient: ISREAL TOPETE Study Date: 05/30/2018 Page 2 of 2 08:49 AM [id number]
--- NOTE | 2018-05-30 14:41 | CPR ---
DATE OF PROCEDURE: 05/30/2018 INDICATION FOR PROCEDURE: Left-sided CVA with residual left hand weakness, coupled with echodensity seen on the left coronary cusp of the aortic valve. PROCEDURE: Transesophageal echocardiogram. DESCRIPTION OF PROCEDURE: After informed consent was obtained for both ANA and anesthesia, the patie nt was sedated with propofol. A time-out was performed prior to the administration of propofol. A b ite block was in place. ANA probe was passed without incident. ANA probe was used to take images of the aortic valve in shor t, as well as long-axis, as well as transgastric 5 images. There was evidence of a small area of david cium in the midportion of the left coronary cusp. This is not consistent with fibroelastoma. There is no evidence of aortic stenosis or aortic insufficiency. Please see complete echocardiogram for fu rther details. There was no evidence of thrombus in the left atrial appendage. Agitated saline cont rast study was negative for patent foramen ovale or atrial septal defect. The patient tolerated the tolerated the procedure well. There were no postoperative complications. At the time of his dictation, he was recovering from anesthesia without complications. PLAN: 1. We will review findings with the patient once he is awake from sedation. 2. No indication for surgical resection of calcium deposition on aortic valve. Findings are not con sistent fibroelastoma. 3. Would recommend consideration of implantable loop recorder in the setting of CVA with unclear asia ology. /[id number]/MODL
--- NOTE | 2018-05-30 15:26 | GDS ---
IN-HOSPITAL CONSULTANTS: Eric Ruiz MD., neurology; Eh Wynn MD., cardiology. 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 HISTORY OF PRESENT ILLNESS: The patient is a pleasant 63-year-old gentleman with a past medical hist ory of coronary artery disease with a history of a CABG, diabetes mellitus type 2, and HIV, who prese nted to the [facility] Emergency Room on 05/29/2018, with complaints of left-handed w eakness and facial droop. On MRI, it was found that he did have a middle cerebral artery territory C VA which appeared embolic in nature. His symptoms were improving at the time of his evaluation in e emergency room, so no tPA was administered. Otherwise, he had a full workup in the hospital includ ing a CT scan of the head, CTA of the head and neck, echocardiogram, as well as a transesophageal ech ocardiogram to follow up on an echodensity noted on the left coronary cusp. The final report for the transesophageal echocardiogram is pending at the time of this dictation, but I did talk with Dr. Moe chiu about the findings, and they were not felt to be related to his current stroke. The patient was pl aced on telemetry monitoring and no atrial fibrillation was identified. The recommendation from Neur ology was to add Plavix on top of his current aspirin therapy. Outpatient occupational therapy is re commended and follow up with Cardiology has been recommended as well to obtain prolonged cardiac domenico toring to evaluate for paroxysmal atrial fibrillation in light of the embolic appearance of the CVA o n the MRI. A lipid panel was obtained the morning after admission, which showed an LDL cholesterol o f 130. The patient states that he has been prescribed Crestor 20 mg daily, but stopped about 1 month ago due to myalgias. We discussed trying coenzyme Q10 along with the statin therapy to see if this would help mitigate some of the muscle side effects, and he stated that he had already started it erin roximately 2 days prior to coming into the hospital. I did advise him I recommended to continue with the coenzyme Q10 but to resume taking Crestor 20 mg daily in light of his cholesterol numbers. HOSPITAL COURSE BY PROBLEM: CVA: Suspected embolic in the right middle cerebral artery territory. The patient has residual left arm weakness, but it has improved. Add Plavix on top of current aspiri n therapy. Schedule outpatient occupational therapy consultation. Follow ups with Cardiology for pr olonged cardiac monitoring as well as neurology are recommended. Coronary artery disease: History of coronary artery bypass grafting, asymptomatic. Continue medical management. Hyperlipidemia: LDL cholesterol at 130, which is unacceptably high considering his history of heart disease as well as current CVA. I recommend he resume Crestor at the previously prescribed 20 mg macario ly and attempt taking it with coenzyme Q10 to see if this will help mitigate any of the muscle side e ffects. Alternative day dosing may need to be considered as well if he does not tolerate. Diabetes mellitus type 2: Hemoglobin A1c ordered during the hospitalization. At the time of this di ctation, it is currently pending. I recommend that he continue his current oral therapy including me tformin. HIV positive: Patient was continued on his HIV medications during this hospitalization. DVT prophylaxis: Patient was on Lovenox during this hospitalization. DISPOSITION: Patient appears stable for discharge home as he is ambulating without difficulty. DISCHARGE PHYSICAL EXAMINATION: VITAL SIGNS: The patient was afebrile. Blood pressure 97/66, heart rate 72, respirations 15, sating 93% on room air. GENERAL: Patient appears comfortable. He is awak e, alert, conversant in no acute distress. HEART: Regular rate and rhythm. No murmurs are apprecia maribel. LUNGS: Clear to auscultation with normal respiratory effort. ABDOMEN: Soft, nontender, and n ondistended. : No Rachel catheter in place. EXTREMITIES: No significant pitting edema. NEUROLOG IC: Slight left-sided facial droop, weakness with hand grasp of the left hand rated approximately 3 to 4 out of 5. Normal on the right. NOTABLE STUDIES: ECG: Normal sinus rhythm. CT scan of the head showed normal brain with atheroscle rotic disease. CTA of the head and the neck localized, non flow limiting spasm versus non flow-limit ing noncalcified plaque of the basilar artery and left posterior cerebral artery. No flow-limiting s tenosis identified of the neck. MRI brain: Evidence for a localized collection of small right middl e cerebral artery territory ischemic cortical infarcts, likely related to a localized shower of embol i. Echocardiogram: Normal systolic left ventricular function with an estimated ejection fraction of 61%. Normal diastolic left ventricular function. There is an echodensity noted on the left coronar y cusp. 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 No intracardiac shunting. Transesophageal echocar diogram: The final results currently pending. DISCHARGE MEDICATIONS: Aspirin 81 mg daily, Plavix 75 mg daily, lisinopril 2.5 mg daily, Crestor 20 mg daily, metformin 500 mg twice a day, Tenof Alafen 1 tablet nightly. DISCHARGE INSTRUCTIONS: I have recommended followup visit with his primary provider in 1 weeks' time . Consultations with cardiology and neurology are also recommended. 45 minutes of time today dedicated to discharge efforts which included personal conversations with Dr Chula Ruiz and Dr. Wynn regarding the patient's care. /[id number]/MODL
== END 2018-05-30 14:48 | disposition home or self-care (01) | DRG 45 ==
LOC: F3N 12:40 → OBSVTOIN 17:00
PROVIDERS: ADMIT Student in an Organized Health Care Education/Training Program; ATTEND Internal Medicine
PROC: B246ZZ4 Ultrasonography of Right and Left Heart, Transesophageal (ICD-10-PCS; principal; 2018-05-30)
DX: I63.411 Cerebral infarction due to embolism of right middle cerebral artery (principal); G83.22 Monoplegia of upper limb affecting left dominant side; R29.810 Facial weakness; R29.702 NIHSS score 2; I25.10 Atherosclerotic heart disease of native coronary artery without angina pectoris; Z95.1 Presence of aortocoronary bypass graft; Z79.82 Long term (current) use of aspirin; E11.9 Type 2 diabetes mellitus without complications; Z21 Asymptomatic human immunodeficiency virus [HIV] infection status; Z87.891 Personal history of nicotine dependence
CPT/HCPCS: 82435-PO; 82565-PO; 82947-PO; 84132-PO; 84295-PO; 84484-ER; 84520-PO; 85014-PO; 92610-GN; 97161-GP; J1650; J2370; J2704; Q9967